=== PATIENT | male | born 1945 | race Caucasian/White ===

== ENCOUNTER 2019-07-20 14:33 | Outpatient (CLI) | payer BC ==
--- NOTE | 2019-07-20 18:19 | MRI ---
MRI PELVIS WITH AND WITHOUT CONTRAST WITH PROSTATE PROTOCOL: HISTORY: Elevated PSA. Negative biopsy. COMPARISON: None. TECHNIQUE: Multiplanar, multisequence MRI of the pelvis is performed prior to and after the intravenous administ ration of contrast. The exam was reviewed on an independent 3D work station. FINDINGS: The prostate measures 4.3 x 3.2 x 3.7 cm for a volume of 27.2 mL. TRANSITIONAL ZONE: There are circumscribed, hypointense, heterogeneous, encapsulated nodules. PERIPHERAL ZONE: No focally abnormal high signal on the diffusion-weighted imaging sequence or low s ignal on ADC. There are few peripheral linear areas of scar. NEUROVASCULAR BUNDLES: Intact. PROSTATIC CAPSULE: Intact. SEMINAL VESICLES: Intact. BONES: On the T1 weighted imaging sequence, there are no abnormal foci of marrow signal replacement to suggest osseous metastatic disease. INTRAPELVIC SOFT TISSUES: Numerous diverticula throughout the sigmoid colon. No free fluid in the p becky. IMPRESSION: 1. PI-RADS 2-Low (clinically significant prostate cancer is unlikely to be present). 2. Intact neurovascular bundles, prostatic capsule, and seminal vesicles. 3. No evidence for osseous or essie metastatic disease. POS: CET
== END 2019-07-20 14:34 | disposition home or self-care (01) ==
LOC: TBSIIMAG 14:33
PROVIDERS: ATTEND Urology
DX: R97.20 Elevated prostate specific antigen [PSA] (principal)
CPT/HCPCS: 72197

== ENCOUNTER 2024-04-29 15:17 | Outpatient (CLI) | payer MEDICARE ==
[2024-04-29 17:20] LABS: Hematocrit 37.4 % (38.8-50.0); Hemoglobin 12.2 g/dL (13.5-17.5); Mean Corpuscular HGB CONC 32.6 g/dL (32.0-36.0); Mean Corpuscular Volume 94.9 fL (81.2-95.1); Mean Platelet Volume 9.8 fL (7.4-10.4); Platelet Count 421 10x3/uL (150-450); RBC Distribution Width 14.8 % (11.5-14.5); Red Blood Cell (RBC) Count 3.94 10x6/uL (4.32-5.72)
[2024-04-29 17:31] LABS: Anion Gap 16 mmol/L (10-20); BUN (Urea Nitrogen) 29 mg/dL (8.4-25.7); Calc. Creatinine Clearance 0 mL/min (70-130); Calcium 9.7 mg/dL (7.8-10.44); Carbon Dioxide 23 mmol/L (23-31); Chloride 108 mmol/L (98-107); Estimated GFR 56; Glucose 108 mg/dL (83-110); Potassium 4.5 mmol/L (3.5-5.1); Sodium 142 mmol/L (136-145)
[2024-04-29 17:34] LABS: PTT 28.9 sec (22.0-33.0); Prothrombin Time 10.8 sec (9.5-12.1)
== END 2024-04-29 15:18 | disposition home or self-care (01) ==
LOC: LABBT 15:17
PROVIDERS: ATTEND Urology
DX: Z01.818 Encounter for other preprocedural examination (principal); N13.5 Crossing vessel and stricture of ureter without hydronephrosis
CPT/HCPCS: 80048; 85027; 85610; 85730; 87086; 93005; 93010

== ENCOUNTER 2024-05-04 06:53 | Day surgery (SDC) | payer MEDICARE ==
[2024-04-29 15:42] VITALS: BMI 18.2
[2024-05-04] MEDS ORDERED: PROPOFOL 20 ML ONE (08:11)
[2024-05-04] MEDS ORDERED: fentaNYL 50 mcg/mL 1 mL Vial ONE (08:11)
[2024-05-04] MEDS ORDERED: Lidocaine 1% PF 5 ML VIAL ONE (08:12)
[2024-05-04] MEDS ORDERED: Iopamidol 30 ML ONE (08:22)
[2024-05-04] MEDS ORDERED: CEFAZOLIN 2 GM VIAL ONE (08:38)
[2024-05-04] MEDS ORDERED: Sodium Chloride 0.9% 100 ML ONE (08:38)
[2024-05-04] MEDS ORDERED: Ondansetron PF 4 MG/2 ML Vial ONE (08:58)
[2024-05-04] MEDS ORDERED: Dexamethasone 4 mg/ml Vial ONE (08:58)
[2024-05-04] MEDS ORDERED: ePHEDrine Sulfate 50 MG/10 ML VIAL ONE (09:03)
== END 2024-05-04 11:42 | disposition home or self-care (01) ==
LOC: SDC 06:53
PROVIDERS: ATTEND Urology
PROC: 0T768DZ Dilation of Right Ureter with Intraluminal Device, Via Natural or Artificial Opening Endoscopic (ICD-10-PCS; principal; 2024-05-04)
DX: N13.5 Crossing vessel and stricture of ureter without hydronephrosis (principal); I10 Essential (primary) hypertension; Z87.442 Personal history of urinary calculi; Z79.899 Other long term (current) drug therapy; Z90.49 Acquired absence of other specified parts of digestive tract
CPT/HCPCS: 52332; 74420; C1769; C2617; J1100; J2405; J2704; J3010; J3490; Q9967